=== PATIENT | female | born 2000 | race Caucasian/White ===

== ENCOUNTER 2021-01-20 19:04 | Emergency (ER) | payer BC ==
[~2021-01-20] VITALS: Ht 170.2 cm; Wt 79.5 kg
[2021-01-20 19:30] VITALS: BP 125/84
[2021-01-20] MEDS ORDERED: AMOX-115 PO (20:00)
== END 2021-01-20 20:22 | disposition home or self-care (01) ==
LOC: ER 19:05
DX: S61.531A Puncture wound without foreign body of right wrist, initial encounter (principal); Z88.8 Allergy status to other drugs, medicaments and biological substances; Z79.899 Other long term (current) drug therapy; W54.0XXA Bitten by dog, initial encounter; Y93.89 Activity, other specified; Y92.89 Other specified places as the place of occurrence of the external cause; Y99.8 Other external cause status
CPT/HCPCS: 73110; 99283